=== PATIENT | female | born 1980 | race Caucasian/White ===

== ENCOUNTER 2024-02-03 18:46 | Emergency (ER) | payer MEDICAID ==
[~2024-02-03] VITALS: Ht 175.3 cm; Wt 71.0 kg
[2024-02-03 18:48] VITALS: BP 138/90; PULSE 100; RESP 18; TEMP 98.6; O2SAT 100
[2024-02-03] MEDS ORDERED: NEOM28.37 TP (23:56)
[2024-02-03] MEDS ORDERED: TOPUD MT (23:56)
[2024-02-03] MEDS ORDERED: IBUP-1525 MT (23:56)
== END 2024-02-03 20:35 | disposition left against medical advice (07) ==
LOC: ER 20:33
DX: M25.561 Pain in right knee (principal); Z53.21 Procedure and treatment not carried out due to patient leaving prior to being seen by health care provider

== ENCOUNTER 2024-02-03 19:50 | Emergency (ER) | payer SELFPAY ==
[~2024-02-03] VITALS: Ht 170.2 cm; Wt 82.0 kg
[2024-02-03 19:54] VITALS: BP 122/78; TEMP 97.8; O2SAT 99
[2024-02-03 19:58] VITALS: PULSE 102; RESP 20
[2024-02-03] MEDS ORDERED: LIDOCAINE HCL 1% 20ML VIAL (Pyxis) INJ INFIL ONE (21:30)
[2024-02-03] MEDS ORDERED: ACETAMINOPHEN 325MG TABLET PO ONE (21:30)
[2024-02-03] MEDS ORDERED: IBUPROFEN 800MG TABLET PO ONE (21:30)
[2024-02-03] MEDS ORDERED: IBUPROFEN 800MG TABLET PO NR (22:15)
[2024-02-03] MEDS ORDERED: TOPUD MT (23:56)
[2024-02-03] MEDS ORDERED: IBUP-1525 MT (23:56)
[2024-02-03] MEDS ORDERED: NEOM28.37 TP (23:56)
== END 2024-02-04 02:01 | disposition home or self-care (01) ==
LOC: ER 19:50
DX: S81.012A Laceration without foreign body, left knee, initial encounter (principal); I10 Essential (primary) hypertension; W18.39XA Other fall on same level, initial encounter; Y93.89 Activity, other specified; Y92.89 Other specified places as the place of occurrence of the external cause; Y99.8 Other external cause status
CPT/HCPCS: 99283; 73030; 12004; J3490